=== PATIENT | male | born 1955 | race Caucasian/White ===

== ENCOUNTER 2017-06-03 12:43 | Inpatient (IN) | payer MEDICAID ==
[~2017-06-03] VITALS: Ht 175.3 cm; Wt 76.9 kg
[2017-06-03 13:09] LABS: Basophils # (auto) 0.1 uL; Basophils % (auto) 0.6 % (0.0-2.0); Eosinophils # (auto) 0 uL; Eosinophils % (auto) 0.1 % (0.0-7.0); Hematocrit 45.3 % (41.0-53.0); Lymphocytes % (auto) 11.8 % (10.0-50.0); Mean Corpuscular Hemoglobin 30.2 pg (28.0-32.0); Mean Corpuscular Hgb Conc. 33.1 g/dL (32.0-36.0); Monocytes # (auto) 0.5 uL; Monocytes % (auto) 6.4 % (0.0-12.0); Neutrophils # (auto) 6.7 uL; Neutrophils % (auto) 81.1 % (37.0-80.0); Platelet Count (auto) 180 10^3/uL (140-450); Red Blood Cells 4.98 10^6/uL (4.5-5.90); Red Cell Distribution Width 17.4 % (11.8-14.3); White Blood Cell 8.3 10^3/uL (4.4-10.8)
[2017-06-03 13:31] LABS: Alanine Aminotransferase 54 U/L (16-61); Albumin 3.5 g/dL (3.4-5.0); Alkaline Phosphatase 97 U/L (45-117); Anion Gap 13 (5-15); Aspartate Aminotransferase 60 U/L (15-37); BUN/Creatinine Ratio 19.8; Bilirubin, Total 0.3 mg/dL (0.2-1.0); Blood Urea Nitrogen 18 mg/dL (7-18); Calcium 8.5 mg/dL (8.5-10.1); Carbon Dioxide 21 mmol/L (21-32); Chloride 106 mmol/L (98-107); GFR African American 108 mL/min; GFR Non-African American 89 mL/min; Glucose 94 mg/dL (74-106); Potassium 4.1 mmol/L (3.5-5.1); Sodium 140 mmol/L (136-145); Total Protein 7.7 g/dL (6.4-8.2)
[2017-06-03] MEDS ORDERED: SODIUM CHLORIDE 0.9% 1,000 ML IV ONE (14:00)
[2017-06-03] MEDS ORDERED: ONDANSETRON HCL 4 MG/2 ML VIAL IV ONE (14:00)
[2017-06-03] MEDS ORDERED: MORPHINE SULFATE 4 MG/ML SYR/VIAL IV ONE (14:00)
[2017-06-03 14:25] LABS: Magnesium 1.9 mg/dL (1.6-2.6)
[2017-06-03] MEDS ORDERED: LORazepam 2MG/ML-1ML VIAL IV ONE (14:30)
[2017-06-03 14:32] LABS: INR 0.86 (0.9-1.15); Partial Thromboplastin Time 27.5 sec (22.64-33.71); Prothrombin Time 9.4 sec (9.37-12.3)
[2017-06-03 14:38] LABS: Lactic Acid w/Reflex 2.8 mmol/L (0.4-2.0)
[2017-06-03] MEDS ORDERED: TEMAZEPAM 15 MG CAP PO PRN (16:15)
[2017-06-03] MEDS ORDERED: MORPHINE SULFATE 4 MG/ML SYR/VIAL IV PRN (16:15)
[2017-06-03] MEDS ORDERED: PANTOPRAZOLE 40 MG/10 ML VIAL IV ONE (16:15)
[2017-06-03] MEDS ORDERED: chlordiazePOXIDE HCL 25 MG CAP PO PRN (16:15)
[2017-06-03] MEDS ORDERED: ACETAMINOPHEN 500 MG TAB PO PRN (16:15)
[2017-06-03] MEDS ORDERED: NITROGLYCERIN 0.4 MG SL TAB SL PRN (16:15)
[2017-06-03] MEDS ORDERED: THIAMINE HCL 100 MG/ML 2ML VIAL IV ONE (16:15)
[2017-06-03] MEDS ORDERED: PROMETHAZINE HCL 25 MG/ML 1ML IV PRN (16:15)
[2017-06-03] MEDS ORDERED: LACTULOSE 20Gm/30ML SOLN PO PRN (16:15)
[2017-06-03] MEDS ORDERED: LORazepam 0.5 MG TAB PO PRN (16:15)
[2017-06-03] MEDS ORDERED: THIAMINE HCL 100 MG TAB PO ONE (16:30)
[2017-06-03] MEDS ORDERED: ALBUTEROL SULF 2.5 MG/0.5ML(0.5%) NEB SOLN NEB PRN (17:00)
[2017-06-03] MEDS: SODIUM CHLORIDE 0.9% 1,000 ML IV SCH (17:10)
[2017-06-03] MEDS: DOXYCYCLINE HYC 100MG/250ML 250 ML IV SCH (17:10)
[2017-06-03] MEDS ORDERED: AMIO200T33 PO (18:11)
[2017-06-03] MEDS ORDERED: ATOR20TA50 PO (18:11)
[2017-06-03] MEDS ORDERED: ASPI81TA27 PO (18:11)
[2017-06-03] MEDS: chlordiazePOXIDE HCL 5 MG CAP PO SCH ×2 (18:28→23:32)
[2017-06-03] MEDS: HYDROcodone-ACET 5/325MG TAB PO PRN (18:53)
[2017-06-03 20:00] VITALS: BP 138/71
[2017-06-03] MEDS: MORPHINE SULFATE 4 MG/ML SYR/VIAL IV PRN (21:46)
[2017-06-03] MEDS: METOPROLOL TARTRATE 25 MG TAB PO SCH (21:46)
[2017-06-03 21:56] VITALS: BP 138/71
[2017-06-03 22:00] VITALS: BP 133/76
[2017-06-03] MEDS ORDERED: ATORVASTATIN 20 MG TAB PO SCH (22:00)
[2017-06-03] MEDS ORDERED: guaiFENesin-DM 100/10mg/5ml SYR PO PRN (22:45)
[2017-06-03 23:23] LABS: Urine WBC None Seen /hpf (0 - 3)
[2017-06-03 23:46] LABS: Urine Bacteria NONE SEEN /hpf (None Seen); Urine Blood Negative /uL (Negative); Urine Specific Gravity 1.028 (1.001-1.035)
[2017-06-03 23:56] LABS: Alcohol, Urine < 3.0 mg/dL (0-5); Amphetamine Screen, Urine NEGATIVE (NEGATIVE); Barbiturate Scree,Urine NEGATIVE (NEGATIVE); Benzodiazephine Screen, Urine NEGATIVE (NEGATIVE); Cannabinoid Screen, Urine POSITIVE (NEGATIVE); Cocaine Screen, Urine NEGATIVE (NEGATIVE); Opiate Scree,Urine POSITIVE (NEGATIVE); Phencyclidine Screen, Urine NEGATIVE (NEGATIVE)
[2017-06-04] MEDS: MORPHINE SULFATE 4 MG/ML SYR/VIAL IV PRN (02:23)
[2017-06-04 04:48] VITALS: BP 113/64
[2017-06-04] MEDS: DOXYCYCLINE HYC 100MG/250ML 250 ML IV SCH (05:00)
[2017-06-04] MEDS: SODIUM CHLORIDE 0.9% 1,000 ML IV SCH (05:01)
[2017-06-04] MEDS: chlordiazePOXIDE HCL 5 MG CAP PO SCH ×2 (05:13→12:00)
[2017-06-04 06:05] LABS: Albumin 2.6 g/dL (3.4-5.0); BUN/Creatinine Ratio 19.2; Bilirubin, Total 0.4 mg/dL (0.2-1.0); Calcium 7.4 mg/dL (8.5-10.1); Potassium 3.9 mmol/L (3.5-5.1); Total Protein 5.8 g/dL (6.4-8.2)
[2017-06-04] MEDS: HYDROcodone-ACET 5/325MG TAB PO PRN (08:00)
[2017-06-04 09:00] VITALS: BP 149/80
[2017-06-04] MEDS ORDERED: THIAMINE HCL 100 MG TAB PO SCH (10:00)
[2017-06-04] MEDS ORDERED: ASPirin 81 mg TAB PO SCH (10:00)
[2017-06-04] MEDS ORDERED: NITROGLYCERIN 0.2MG/HR TOPICAL PATCH TD SCH (10:00)
[2017-06-04] MEDS ORDERED: PANTOPRAZOLE 40 MG TAB PO SCH (10:00)
[2017-06-04] MEDS ORDERED: THIAMINE HCL 100 MG/ML 2ML VIAL IV SCH (10:00)
[2017-06-04] MEDS ORDERED: ENOXAPARIN SOD 40 MG/0.4 ML SYRINGE SC SCH (10:00)
[2017-06-04] MEDS: METOPROLOL TARTRATE 25 MG TAB PO SCH (10:02)
[2017-06-04 12:03] VITALS: BP 151/88
[2017-06-04 12:50] VITALS: BP 126/84
== END 2017-06-04 14:00 | disposition home or self-care (01) | DRG 203 ==
LOC: ER 12:43 → TELE 12:44 → TELE-WESTW 17:49
PROVIDERS: ADMIT Internal Medicine; ATTEND Internal Medicine
DX: R07.89 Other chest pain (principal); K86.1 Other chronic pancreatitis; I10 Essential (primary) hypertension; J06.9 Acute upper respiratory infection, unspecified; F10.230 Alcohol dependence with withdrawal, uncomplicated; E78.5 Hyperlipidemia, unspecified; K21.9 Gastro-esophageal reflux disease without esophagitis; Z80.1 Family history of malignant neoplasm of trachea, bronchus and lung; Z82.49 Family history of ischemic heart disease and other diseases of the circulatory system; Z86.718 Personal history of other venous thrombosis and embolism; Z87.891 Personal history of nicotine dependence; Z95.1 Presence of aortocoronary bypass graft; Z90.49 Acquired absence of other specified parts of digestive tract; Z79.82 Long term (current) use of aspirin; Z79.899 Other long term (current) drug therapy
CPT/HCPCS: 36415; 71045; 80053; 80061; 80307; 80320; 81001; 82150; 82550; 83605; 83690; 83735; 84443; 84484; 85025; 85379; 85610; 85652; 85730; 86141; 87040; 87804; 93005; 94640; 94761; 96361; 96365; 96375; C9113; J2405; J3490

== ENCOUNTER 2017-07-15 12:10 | Emergency (ER) | payer MEDICAID ==
[~2017-07-15] VITALS: Ht 175.3 cm; Wt 77.1 kg
[~2017-07-15 12:10] MED LIST: ASPI81TA27 PO; ATOR20TA50 PO
[2017-07-15] MEDS ORDERED: SODIUM CHLORIDE 0.9% 1,000 ML IV ONE (12:45)
[2017-07-15 12:58] LABS: Basophils # (auto) 0 uL; Basophils % (auto) 0.7 % (0.0-2.0); Eosinophils # (auto) 0 uL; Eosinophils % (auto) 0.1 % (0.0-7.0); Hematocrit 38.1 % (41.0-53.0); Hemoglobin 12.7 g/dL (13.5-17.5); Lymphocytes # (auto) 1.2 uL; Lymphocytes % (auto) 21.5 % (10.0-50.0); Mean Corpuscular Hemoglobin 29.3 pg (28.0-32.0); Mean Corpuscular Hgb Conc. 33.2 g/dL (32.0-36.0); Mean Corpuscular Volume 88.3 fL (80.0-100.0); Monocytes # (auto) 0.4 uL; Monocytes % (auto) 7.4 % (0.0-12.0); Neutrophils # (auto) 3.8 uL; Neutrophils % (auto) 70.3 % (37.0-80.0); Platelet Count (auto) 116 10^3/uL (140-450); Red Blood Cells 4.31 10^6/uL (4.5-5.90); Red Cell Distribution Width 19.4 % (11.8-14.3); White Blood Cell 5.4 10^3/uL (4.4-10.8)
[2017-07-15] MEDS ORDERED: SODIUM CHLORIDE 0.9% 2,000 ML IV ONE (13:00)
[2017-07-15] MEDS ORDERED: LORazepam 2MG/ML-1ML VIAL IV ONE (13:00)
[2017-07-15 13:17] LABS: Albumin 3.8 g/dL (3.4-5.0); BUN/Creatinine Ratio 16.2; Bilirubin, Total 0.9 mg/dL (0.2-1.0); Potassium 3.6 mmol/L (3.5-5.1); Total Protein 7.2 g/dL (6.4-8.2)
[2017-07-15 14:13] LABS: Urine Bacteria NONE SEEN /hpf (None Seen); Urine Blood Negative /uL (Negative); Urine Mucus FEW (None Seen); Urine Specific Gravity 1.008 (1.001-1.035); Urine WBC 1 /hpf (0 - 3)
[2017-07-15 14:26] LABS: Amphetamine Screen, Urine NEGATIVE (NEGATIVE); Barbiturate Scree,Urine NEGATIVE (NEGATIVE); Benzodiazephine Screen, Urine NEGATIVE (NEGATIVE); Cannabinoid Screen, Urine NEGATIVE (NEGATIVE); Cocaine Screen, Urine NEGATIVE (NEGATIVE); Opiate Scree,Urine NEGATIVE (NEGATIVE); Phencyclidine Screen, Urine NEGATIVE (NEGATIVE)
[2017-07-15] MEDS ORDERED: THIAMINE INJ 100 MG, MULTIPLE VITAMIN 10 ML, FOLIC ACID 1 MG, MAGNESIUM SULF SDV 50% 8 ... IV SCH ×5 (15:45)
[2017-07-15 16:04] VITALS: BP 150/57
== END 2017-07-15 17:07 | disposition home or self-care (01) ==
LOC: ER 12:10
DX: S40.011A Contusion of right shoulder, initial encounter (principal); F10.230 Alcohol dependence with withdrawal, uncomplicated; E78.5 Hyperlipidemia, unspecified; I10 Essential (primary) hypertension; I25.10 Atherosclerotic heart disease of native coronary artery without angina pectoris; K21.9 Gastro-esophageal reflux disease without esophagitis; I25.2 Old myocardial infarction; Z90.49 Acquired absence of other specified parts of digestive tract; Z95.1 Presence of aortocoronary bypass graft; W19.XXXA Unspecified fall, initial encounter; Y93.89 Activity, other specified; Y92.89 Other specified places as the place of occurrence of the external cause; Y99.8 Other external cause status
CPT/HCPCS: 36415; 73030; 80053; 80307; 80320; 81001; 85025; 93005; 96361; 96365; 96375; 99285; J2060; J3411; J3475; J7030; J7070

== ENCOUNTER 2017-08-01 16:21 | Emergency (ER) | payer MEDICAID ==
[~2017-08-01] VITALS: Ht 175.3 cm; Wt 77.1 kg
[2017-08-01 16:30] VITALS: BP 122/64
== END 2017-08-01 19:48 | disposition left against medical advice (07) ==
LOC: ER 16:31
DX: F10.10 Alcohol abuse, uncomplicated (principal); Z53.21 Procedure and treatment not carried out due to patient leaving prior to being seen by health care provider

== ENCOUNTER 2017-08-02 15:48 | Emergency (ER) | payer MEDICAID ==
[~2017-08-02] VITALS: Ht 175.3 cm; Wt 77.1 kg
[2017-08-02 16:10] VITALS: BP 129/83
== END 2017-08-02 16:50 | disposition home or self-care (01) ==
LOC: ER 15:54
DX: F10.239 Alcohol dependence with withdrawal, unspecified (principal); I25.810 Atherosclerosis of coronary artery bypass graft(s) without angina pectoris; K21.9 Gastro-esophageal reflux disease without esophagitis; E78.5 Hyperlipidemia, unspecified; I10 Essential (primary) hypertension; I25.2 Old myocardial infarction; Z90.49 Acquired absence of other specified parts of digestive tract; Z95.1 Presence of aortocoronary bypass graft; Z79.899 Other long term (current) drug therapy; Z76.0 Encounter for issue of repeat prescription